=== PATIENT | male | born 1950 | race Caucasian/White ===

== ENCOUNTER 2019-11-21 10:43 | Emergency (ER) | payer OTHER ==
[~2019-11-21] VITALS: Ht 185.4 cm; Wt 127.3 kg
[2019-11-21] MEDS ORDERED: RISPERIDONE PO (11:14)
[2019-11-21] MEDS ORDERED: [UNRECOGNIZED DRUG - CODE] PO (11:14)
[2019-11-21] MEDS ORDERED: ROSU20TA23 PO (11:14)
[2019-11-21] MEDS ORDERED: LACT10SO75 PO (11:14)
[2019-11-21] MEDS ORDERED: RIVA20TA PO (11:14)
[2019-11-21] MEDS ORDERED: METO25 PO (11:14)
[2019-11-21] MEDS ORDERED: LISI20TA PO (11:14)
[2019-11-21 11:26] LABS: BASOPHILS % (AUTO) 0.3 % (0.0-2.0); EOSINOPHILS % (AUTO) 1.3 % (1.0-6.0); HEMATOCRIT 48.3 % (41-53); HEMOGLOBIN 15.6 g/dL (13.5-17.5); LYMPHOCYTES # (AUTO) 2.1 K/uL (1.0-4.8); LYMPHOCYTES % (AUTO) 24.2 % (22.0-44.0); MEAN CORPUSCULAR HEMOGLOBIN 29.6 pg (26.0-34.0); MEAN CORPUSCULAR HGB CONC 32.3 G/dL (31.0-37.0); MEAN CORPUSCULAR VOLUME 92 fL (80-100); MONOCYTES # (AUTO) 0.8 K/uL (0.1-1.0); NEUTROPHILS # (AUTO) 5.7 K/uL (1.8-7.7); NEUTROPHILS % (AUTO) 65.2 % (40.0-70.0); PLATELET COUNT (AUTO) 195 K/uL (150-450); RED BLOOD CELL COUNT(AUTO) 5.26 MIL/uL (4.50-5.90); RED CELL DISTRIBUTION WIDTH 15.2 % (11.5-14.5)
[2019-11-21 11:38] LABS: ANION GAP 21 mmol/L (8-16); CARBON DIOXIDE 16 mmol/L (22-29); CHLORIDE 101 mmol/L (98-107); CREATININE 1.05 mg/dL (0.60-1.30); GLOMERULAR FILTR. RATE CALC > 60 mL/min (>60); GLUCOSE,RANDOM 115 mg/dL (70-110); POTASSIUM 4.8 mmol/L (3.5-5.1); SODIUM SERUM 138 mmol/L (136-145); UREA NITROGEN, BLOOD 14 mg/dL (7-18)
[2019-11-21 11:39] LABS: PROTHROMBIN TIME 10.6 SEC (9.4-11.6)
[2019-11-21 12:04] LABS: TROPONIN I < 0.02 ng/mL (0.00-0.05)
[2019-11-21 12:06] LABS: AMMONIA < 10 umol/L (11-32)
[2019-11-21 12:14] LABS: ALANINE AMINOTRANSFERASE 28 U/L (12-78); ALBUMIN 4.1 g/dL (3.4-5.0); ALKALINE PHOSPHATASE 101 U/L (46-116); ASPARTATE AMINOTRANSFERASE 25 U/L (15-37); BILIRUBIN,TOTAL 0.4 mg/dL (0.1-1.0); CREATINE KINASE, TOTAL ONLY 168 U/L (39-308); TOTAL PROTEIN, SERUM 8.2 g/dL (6.4-8.2)
[2019-11-21 12:42] LABS: SALICYLATE 3.6 mg/dL (2.8-20.0)
[2019-11-21 12:48] LABS: ACETAMINOPHEN < 2 mcg/mL (10-30)
[2019-11-21 13:29] LABS: APPEARANCE,URINE CLEAR (CLEAR); GLUCOSE, URINE (UA) NEGATIVE (NEGATIVE); KETONES,URINE >=80 mg/dL (NEGATIVE); LEUKOCYTE ESTERASE ,URINE NEGATIVE (NEGATIVE); NITRATE,URINE NEGATIVE (NEGATIVE); OCCULT BLOOD,URINE NEGATIVE (NEGATIVE); PH,URINE 5.5 (5.0-8.0); PROTEIN,URINE POS 1+ (NEGATIVE); UROBILINOGEN,URINE 0.2 mg/dL (<=1.0)
[2019-11-21 13:32] LABS: BILIRUBIN,URINE PRELIM. POSITIVE (NEGATIVE)
[2019-11-21 13:35] LABS: AMPHET/METH SCREEN,URINE NEGATIVE (NEGATIVE); BARBITURATE SCREEN, URINE NEGATIVE (NEGATIVE); BENZODIAZEPINES SCREEN,URINE NEGATIVE (NEGATIVE); CANNABINOID SCREEN,URINE NEGATIVE (NEGATIVE); COCAINE SCREEN,URINE NEGATIVE (NEGATIVE); METHADONE SCREEN, URINE NEGATIVE (NEGATIVE); OPIATE SCREEN,URINE NEGATIVE (NEGATIVE); PHENCYCLIDINE SCREEN,URINE NEGATIVE (NEGATIVE)
[2019-11-21 13:37] LABS: BACTERIA,URINE None Seen /HPF (None Seen); RBC,URINE None Seen /HPF (0-2); WBC,URINE None Seen /HPF (0-5)
[2019-11-21] MEDS ORDERED: SODIUM CHLORIDE 0.9% 1,000 ML IV ONE (14:00)
[2019-11-21 19:32] LABS: GLUCOSE,POINT OF CARE 119 MG/DL (70-110)
[2019-11-21 21:00] VITALS: BP 161/93
== END 2019-11-21 21:49 | disposition short-term general hospital (02) ==
LOC: EMS 10:45
DX: G93.49 Other encephalopathy (principal); R41.82 Altered mental status, unspecified; E11.9 Type 2 diabetes mellitus without complications; E78.00 Pure hypercholesterolemia, unspecified; I10 Essential (primary) hypertension; Z79.899 Other long term (current) drug therapy
CPT/HCPCS: 36245; 36415; 36569; 70450; 71045; 76937; 80053; 80307; 81001; 82140; 82550; 82962; 83605; 83880; 84484; 85025; 85610; 85730; 93005; 96360; 99285; G0480 ×2; G0481; J7030; 99291